=== PATIENT | female | born 1940 | race Caucasian/White ===

== ENCOUNTER 2017-06-20 04:40 | Emergency (ER) | payer SELFPAY ==
[~2017-06-20] VITALS: Ht 152.4 cm; Wt 73.0 kg
[2017-06-20] MEDS ORDERED: LORA10TA7 PO (04:52)
[2017-06-20] MEDS ORDERED: NAPR-923 PO (04:52)
[2017-06-20] MEDS ORDERED: LOSA50TA37 PO (04:58)
[2017-06-20] MEDS ORDERED: OMEP20 PO (04:58)
[2017-06-20] MEDS ORDERED: AMLO5TAB66 PO (04:58)
[2017-06-20] MEDS ORDERED: FURO40 PO (04:58)
[2017-06-20] MEDS ORDERED: CIPR250S5 PO (04:58)
[2017-06-20] MEDS ORDERED: BACTDSB PO (04:58)
[2017-06-20 05:42] LABS: BASOPHILS # (AUTO) 0.01 K/uL (0.00-0.20); BASOPHILS % (AUTO) 0.2 % (0.0-2.0); EOSINOPHILS # (AUTO) 0.04 K/uL (0.00-0.70); EOSINOPHILS % (AUTO) 0.62 % (1.0-6.0); HEMATOCRIT 39.2 % (36-46); LYMPHOCYTES # (AUTO) 0.8 K/uL (1.0-4.8); LYMPHOCYTES % (AUTO) 13.4 % (22.0-44.0); MEAN CORPUSCULAR HEMOGLOBIN 27.1 pg (26.0-34.0); MEAN CORPUSCULAR HGB CONC 33.1 G/dL (31.0-37.0); MEAN CORPUSCULAR VOLUME 82 fL (80-100); MONOCYTES # (AUTO) 0.8 K/uL (0.1-1.0); MONOCYTES % (AUTO) 12.3 % (2.0-9.0); NEUTROPHILS # (AUTO) 4.6 K/uL (1.8-7.7); NEUTROPHILS % (AUTO) 73.4 % (40.0-70.0); PLATELET COUNT (AUTO) 218 K/uL (150-450); RED BLOOD CELL COUNT(AUTO) 4.79 MIL/uL (4.00-5.20); RED CELL DISTRIBUTION WIDTH 14.6 % (11.5-14.5); WHITE BLOOD COUNT (AUTO) 6.3 K/uL (4.5-11.0)
[2017-06-20 05:54] LABS: CALCIUM, TOTAL 8.4 mg/dL (8.8-10.5); CREATININE 1.02 mg/dL (0.60-1.30); POTASSIUM 3.5 mmol/L (3.5-5.1)
[2017-06-20 05:59] LABS: ALBUMIN 3.4 g/dL (3.4-5.0); BILIRUBIN,TOTAL 0.3 mg/dL (0.1-1.0); TOTAL PROTEIN, SERUM 7.5 g/dL (6.4-8.2)
[2017-06-20] MEDS ORDERED: DOXYCYCLINE 100 MG CAPSULE PO ONE (06:30)
[2017-06-20 06:32] VITALS: BP 130/59
== END 2017-06-20 06:44 | disposition home or self-care (01) ==
LOC: EMS 04:43 → EDBD 04:43 → EMS 06:44
DX: J18.9 Pneumonia, unspecified organism (principal); I10 Essential (primary) hypertension; Z88.0 Allergy status to penicillin
CPT/HCPCS: 99285